=== PATIENT | male | born 1955 | race Asian ===

== ENCOUNTER 2019-11-04 17:22 | Emergency (ER) | payer MEDICARE ==
[~2019-11-04] VITALS: Ht 160 cm; Wt 69.0 kg
[2019-11-04] MEDS ORDERED: OMEP-110 PO (17:52)
[2019-11-04] MEDS ORDERED: LOSA25TA25 PO (17:52)
[2019-11-04 18:20] LABS: BASOPHILS # (AUTO) 0.03 x10^3/uL (0-0.1); BASOPHILS % (AUTO) 1 % (0-1); EOSINOPHILS % (AUTO) 7 % (1-7); LYMPHOCYTES # (AUTO) 1.55 x10^3/uL (1-3.4); LYMPHOCYTES % (AUTO) 25 % (22-44); MD NO; MEAN CORPUSCULAR HEMOGLOBIN 32.4 pg (27.5-34.5); MEAN CORPUSCULAR HGB CONC 33.9 g/dL (33.2-36.2); MEAN CORPUSCULAR VOLUME 95.6 fL (81-97); MEAN PLATELET VOLUME 7.4 fL (7.4-10.4); MONOCYTES # (AUTO) 0.43 x10^3/uL (0.2-0.8); MONOCYTES % (AUTO) 7 % (2-9); NEUTROPHILS # (AUTO) 3.73 x10^3/uL (1.8-6.8); NEUTROPHILS % (AUTO) 61 % (42-75); PLATELET COUNT 203 x10^3/uL (130-400); RED CELL DISTRIBUTION WIDTH 14.2 % (9.4-14.8)
[2019-11-04 18:33] LABS: ALANINE AMINOTRANSFERASE 76 U/L (12-78); ALBUMIN 3.7 g/dL (3.4-5.0); ANION GAP 7 mmol/L (5-15); CALCIUM 8.9 mg/dL (8.5-10.1); CHLORIDE 104 mmol/L (98-107); CREATININE 0.92 mg/dL (0.7-1.3)
[2019-11-04 18:35] LABS: ALKALINE PHOSPHATASE 63 U/L (45-117); BILIRUBIN,TOTAL 0.9 mg/dL (0.2-1.0); TOTAL PROTEIN 7.7 g/dL (6.4-8.2)
[2019-11-04 18:58] LABS: MICROSCOPIC NOT IND
[2019-11-04] MEDS ORDERED: SODIUM CHLORIDE FLUSH 10ML SYR IVF ONE (19:00)
[2019-11-04 19:02] VITALS: BP 135/73
[2019-11-04 19:02] LABS: CULTURE INDICATED? NO
--- NOTE | 2019-11-04 19:03 | NUR ---
REPORT RECIEVED FROM JOYCE IVEY. ASSUMED CARE
[2019-11-04] MEDS ORDERED: OMNIPAQUE 350 MG/ML, 100ML BOTTLE ONE (19:48)
== END 2019-11-04 20:32 | disposition home or self-care (01) ==
LOC: ED 19:10
DX: K40.90 Unilateral inguinal hernia, without obstruction or gangrene, not specified as recurrent (principal); I10 Essential (primary) hypertension; K21.9 Gastro-esophageal reflux disease without esophagitis
CPT/HCPCS: 36415; 74177; 80053; 81003; 83605; 83690; 85025; 99285; Q9967

== ENCOUNTER → 2019-11-20 | Outpatient (CLI) | payer MEDICARE ==
[~2019-11-20] MED LIST: LOSA25TA25 PO; OMEP-110 PO; OMNIPAQUE 350 MG/ML, 100ML BOTTLE ONE
== END | disposition home or self-care (01) ==
LOC: CFH 12:11
PROVIDERS: ATTEND Nurse Practitioner Family
DX: N28.1 Cyst of kidney, acquired (principal); K76.89 Other specified diseases of liver; K44.9 Diaphragmatic hernia without obstruction or gangrene; M95.8 Other specified acquired deformities of musculoskeletal system; K21.9 Gastro-esophageal reflux disease without esophagitis
CPT/HCPCS: 74170; Q9967

== ENCOUNTER 2019-11-28 10:57 | Outpatient (CLI) | payer MEDICARE ==
[~2019-11-28 10:57] MED LIST changes: -OMNIPAQUE 350 MG/ML, 100ML BOTTLE ONE
[2019-11-28] MEDS ORDERED: vitamin e PO (11:32)
[2019-11-28] MEDS ORDERED: TURM500C4 PO (11:32)
[2019-11-28] MEDS ORDERED: ASCO500C2 PO (11:32)
[2019-11-28] MEDS ORDERED: GARL10002 PO (11:32)
[2019-11-28 12:23] LABS: BASOPHILS # (AUTO) 0.04 x10^3/uL (0-0.1); BASOPHILS % (AUTO) 1 % (0-1); EOSINOPHILS # (AUTO) 0.63 x10^3/uL (0-0.4); EOSINOPHILS % (AUTO) 12 % (1-7); LYMPHOCYTES # (AUTO) 1.19 x10^3/uL (1-3.4); LYMPHOCYTES % (AUTO) 22 % (22-44); MD NO; MEAN CORPUSCULAR HEMOGLOBIN 32.5 pg (27.5-34.5); MEAN CORPUSCULAR HGB CONC 33.2 g/dL (33.2-36.2); MEAN CORPUSCULAR VOLUME 97.6 fL (81-97); MEAN PLATELET VOLUME 7.6 fL (7.4-10.4); MONOCYTES # (AUTO) 0.39 x10^3/uL (0.2-0.8); MONOCYTES % (AUTO) 7 % (2-9); NEUTROPHILS # (AUTO) 3.11 x10^3/uL (1.8-6.8); NEUTROPHILS % (AUTO) 58 % (42-75); PLATELET COUNT 208 x10^3/uL (130-400); RED BLOOD COUNT 4.88 x10^6/uL (4.38-5.82); RED CELL DISTRIBUTION WIDTH 14.2 % (9.4-14.8)
[2019-11-28 12:33] LABS: INTERNATIONAL NORMALIZED RATIO 1.01 (0.93-1.1); PROTHROMBIN TIME 10.7 Seconds (9.6-11.5)
[2019-11-28 12:35] LABS: ALANINE AMINOTRANSFERASE 74 U/L (12-78); ALBUMIN 3.9 g/dL (3.4-5.0); ANION GAP 8 mmol/L (5-15); CALCIUM 9.1 mg/dL (8.5-10.1); CHLORIDE 105 mmol/L (98-107)
[2019-11-28 12:37] LABS: ALKALINE PHOSPHATASE 66 U/L (45-117); CREATININE 0.98 mg/dL (0.7-1.3); TOTAL PROTEIN 8.2 g/dL (6.4-8.2)
== END 2019-11-28 23:59 | disposition home or self-care (01) ==
LOC: STAR 10:57
PROVIDERS: ATTEND Surgery
DX: Z01.818 Encounter for other preprocedural examination (principal); Z11.59 Encounter for screening for other viral diseases; K40.90 Unilateral inguinal hernia, without obstruction or gangrene, not specified as recurrent
CPT/HCPCS: 36415; 80053; 85025; 85610; 85730; 93005; U0001

== ENCOUNTER 2019-12-02 06:57 | Day surgery (SDC) | payer MEDICARE ==
[2019-11-28 11:59] VITALS: BP 148/81
[~2019-12-02] VITALS: Ht 160 cm; Wt 64.0 kg
[~2019-12-02 06:57] MED LIST changes: +ASCO500C2 PO; +GARL10002 PO; +TURM500C4 PO; +vitamin e PO
[2019-12-02] MEDS ORDERED: FENTANYL PF 100 MCG/2ML ONE ×2 (07:02→10:39)
[2019-12-02] MEDS ORDERED: MIDAZOLAM 1 MG/ML, 2ML ONE (07:02)
[2019-12-02] MEDS ORDERED: LACTATED RINGERS 1,000 ML IV SCH (07:08)
[2019-12-02 07:12] VITALS: BP 148/81
[2019-12-02] MEDS ORDERED: CHLORHEXIDINE 15 ML UDC ONE (07:14)
[2019-12-02] MEDS ORDERED: HYDROmorphone 1 MG/ML, 1ML INJ IVPush PRN (07:30)
[2019-12-02] MEDS ORDERED: MEPERIDINE/PF 25MG/0.5ML IVPush PRN (07:30)
[2019-12-02] MEDS ORDERED: CHLORHEXIDINE 15 ML UDC MM ONE (07:30)
[2019-12-02] MEDS ORDERED: KETOROLAC 30 MG/1 ML IVPush PRN (07:30)
[2019-12-02] MEDS ORDERED: HYDROcodone/APAP 7.5-325MG/15ML UDC PO PRN (07:30)
[2019-12-02] MEDS ORDERED: PROMETHAZINE 25 MG/ML, 1ML IVPush PRN (07:30)
[2019-12-02] MEDS ORDERED: BUPIVACAINE/PF-EPI 0.5% 1:200K ONE (07:37)
[2019-12-02] MEDS ORDERED: SUGAMMADEX 200 MG/2 ML IVPush ONE (09:05)
[2019-12-02] MEDS ORDERED: ROCURONIUM 10 MG/ML,10ML ONE (09:05)
[2019-12-02] MEDS ORDERED: PROPOFOL 10 MG/ML, 100ML IV ONE (09:05)
[2019-12-02] MEDS ORDERED: ONDANSETRON 2MG/ML, 2ML ONE (09:05)
[2019-12-02] MEDS ORDERED: SUCCINYLCHOLINE 20 MG/ML, 10ML ONE (09:05)
[2019-12-02] MEDS ORDERED: CEFAZOLIN PMX 1GM/50ML ONE (09:05)
[2019-12-02] MEDS ORDERED: DEXAMETHASONE 4 MG/ML, 1ML ONE (09:05)
[2019-12-02] MEDS: FENTANYL PF 100 MCG/2ML IV PRN ×3 (10:42→11:15)
[2019-12-02] MEDS ORDERED: HYDROcodone/APAP 7.5-325MG/15ML UDC ONE (10:58)
== END 2019-12-02 13:50 | disposition home or self-care (01) ==
LOC: OR 06:57
PROVIDERS: ATTEND Surgery
DX: K40.20 Bilateral inguinal hernia, without obstruction or gangrene, not specified as recurrent (principal); Z79.899 Other long term (current) drug therapy; Z87.891 Personal history of nicotine dependence
CPT/HCPCS: 49650; C1781; J0330; J0690; J1100; J2250; J2405; J2704; J3010; J7120

== ENCOUNTER 2021-02-24 15:59 | Outpatient (CLI) | payer MEDICARE | END 2021-02-24 23:59 | disposition home or self-care (01) | LOC: CVU 15:59 | PROVIDERS: ATTEND Internal Medicine | DX: Z02.9 Encounter for administrative examinations, unspecified (principal) ==

== ENCOUNTER → 2021-02-24 | Outpatient (CLI) | payer MEDICARE | END | disposition home or self-care (01) | LOC: CARD 16:00 → EDSTATUS 16:00 | PROVIDERS: ATTEND Internal Medicine | DX: I08.0 Rheumatic disorders of both mitral and aortic valves (principal); R01.1 Cardiac murmur, unspecified | CPT/HCPCS: 93306; 93356 ==